=== PATIENT | female | born 1970 | race Caucasian/White ===

== ENCOUNTER 2019-01-05 15:00 | Outpatient (RCR) | payer OTHER | END 2019-01-05 15:30 | disposition still patient (30) | LOC: PT 15:00 | DX: M54.5 Low back pain (principal); G89.29 Other chronic pain | CPT/HCPCS: G0283-GP ==

== ENCOUNTER → 2022-04-22 | Outpatient (CLI) | payer OTHER | LOC: RAD 12:54 | DX: K57.30 Diverticulosis of large intestine without perforation or abscess without bleeding (principal); K59.00 Constipation, unspecified | CPT/HCPCS: Q9967 ==

== ENCOUNTER 2022-05-05 13:57 | Outpatient (RCR) | payer OTHER | END 2022-05-19 | disposition home or self-care (01) | LOC: PT | DX: S82.831A Other fracture of upper and lower end of right fibula, initial encounter for closed fracture (principal); S82.61XD Displaced fracture of lateral malleolus of right fibula, subsequent encounter for closed fracture with routine healing ==

== ENCOUNTER 2022-05-21 08:20 | Outpatient (RCR) | payer OTHER | END 2022-06-18 | disposition still patient (30) | LOC: PT | DX: S82.61XD Displaced fracture of lateral malleolus of right fibula, subsequent encounter for closed fracture with routine healing (principal); S82.831D Other fracture of upper and lower end of right fibula, subsequent encounter for closed fracture with routine healing; X58.XXXD Exposure to other specified factors, subsequent encounter ==

== ENCOUNTER 2022-06-21 08:00 | Outpatient (RCR) | payer OTHER | END 2022-07-19 | disposition home or self-care (01) | LOC: PT | DX: S82.61XD Displaced fracture of lateral malleolus of right fibula, subsequent encounter for closed fracture with routine healing (principal); X58.XXXD Exposure to other specified factors, subsequent encounter ==

== ENCOUNTER 2023-11-03 08:00 | Outpatient (RCR) | payer OTHER ==
[~2023-11-03 08:00] MED LIST: ALPRAZOLAM0.25 MG PO; ATORVASTATIN CA80 MG PO; BENTYL 20MG20 MG/TAB PO; BUDESONIDE EC3 MG PO; CYCLOBENZAPRINE10 M1 PO; EDARBI40 MG PO; ENBREL50 MG/ML SQ; FLUTICASON0.05 MG/AC NS; GOOD NEIGHBOR L10 MG PO; IMURAN 50MG TAB50 MG PO; IRON 100 WITH V1 TAB PO; NORCO 325 MG-7.1 TA1 PO; NORVASC 10MG10 MG PO; PAROXETINE HYDR30 MG PO; PHENERGAN 25 TA25 MG PO; TYLENOL EXTRA500 M2 PO; [UNRECOGNIZED DRUG - OTHER] PO
== END 2023-11-17 | disposition home or self-care (01) ==
LOC: PT
DX: M25.571 Pain in right ankle and joints of right foot (principal); Z98.890 Other specified postprocedural states

== ENCOUNTER 2024-01-18 08:00 | Outpatient (RCR) | payer OTHER | END 2024-02-17 | disposition home or self-care (01) | LOC: PT | DX: M25.571 Pain in right ankle and joints of right foot (principal); Z98.890 Other specified postprocedural states ==

== ENCOUNTER → 2024-08-24 | Outpatient (CLI) | payer OTHER | LOC: RAD 15:41 | DX: K50.919 Crohn's disease, unspecified, with unspecified complications (principal) ==